=== PATIENT | female | born 1945 | race Two or more races ===

== ENCOUNTER 2023-02-07 14:01 | Emergency (ER) | payer MEDICARE ==
[~2023-02-07] VITALS: Ht 165.1 cm; Wt 97.7 kg
[2023-02-07 14:04] VITALS: TEMP 98.6
[2023-02-07] MEDS ORDERED: CYCL-448 PO (14:39)
[2023-02-07] MEDS ORDERED: ALBU18HF12 IH (14:39)
[2023-02-07] MEDS ORDERED: LOSA-30 PO (14:39)
[2023-02-07] MEDS ORDERED: FLUT1BLS12 IH (14:39)
[2023-02-07] MEDS ORDERED: GABA-1181 PO (14:39)
[2023-02-07] MEDS ORDERED: APIX5TAB PO (14:39)
[2023-02-07] MEDS ORDERED: ATOR20TA PO (14:39)
[2023-02-07] MEDS ORDERED: FURO20 PO (14:39)
[2023-02-07] MEDS ORDERED: AUD NEB (14:39)
[2023-02-07 14:51] LABS: BASOPHILS % (AUTO) 0.4 % (0.0-2.0); EOSINOPHILS % (AUTO) 1.5 % (1.0-6.0); HEMATOCRIT 35.2 % (36-46); HEMOGLOBIN 11.4 g/dL (12.0-16.0); LYMPHOCYTES # (AUTO) 1.3 K/uL (1.0-4.8); LYMPHOCYTES % (AUTO) 21.5 % (22.0-44.0); MEAN CORPUSCULAR HEMOGLOBIN 29.8 pg (26.0-34.0); MEAN CORPUSCULAR HGB CONC 32.5 G/dL (31.0-37.0); MEAN CORPUSCULAR VOLUME 92 fL (80-100); MONOCYTES # (AUTO) 0.7 K/uL (0.1-1.0); MONOCYTES % (AUTO) 11.3 % (2.0-9.0); NEUTROPHILS # (AUTO) 3.9 K/uL (1.8-7.7); NEUTROPHILS % (AUTO) 65.3 % (40.0-70.0); PLATELET COUNT (AUTO) 230 K/uL (150-450); RED BLOOD CELL COUNT(AUTO) 3.83 MIL/uL (4.00-5.20); RED CELL DISTRIBUTION WIDTH 16.6 % (11.5-14.5)
[2023-02-07 15:00] LABS: CALCIUM, TOTAL 8.5 mg/dL (8.8-10.5); CREATININE 1.47 mg/dL (0.60-1.30); POTASSIUM 3.4 mmol/L (3.5-5.1)
[2023-02-07 15:06] LABS: ALBUMIN 2.8 g/dL (3.4-5.0); BILIRUBIN,TOTAL 0.3 mg/dL (0.1-1.0); TOTAL PROTEIN, SERUM 6.3 g/dL (6.4-8.2)
[2023-02-07] MEDS ORDERED: SODIUM CHLORIDE 0.9% 100 ML ONE (15:22)
[2023-02-07] MEDS ORDERED: IOHEXOL 350 MG/ML 100 ML VIAL ONE (15:23)
[2023-02-07 15:51] VITALS: BP 113/53
[2023-02-07 16:12] VITALS: PULSE 95; RESP 16; O2SAT 92
[2023-02-07] MEDS ORDERED: ALBUTEROL SULFATE 2.5 MG/0.5 ML NEB SOLUTION NEB ONE (16:15)
[2023-02-07] MEDS ORDERED: MethylPREDNISolone SOD SUCC 125 MG/2 ML VIAL IVP ONE (16:15)
[2023-02-07] MEDS ORDERED: IPRATROPIUM BROMIDE 0.5 MG/2.5 ML NEB SOLUTION NEB ONE (16:15)
[2023-02-07 16:28] VITALS: PULSE 72; RESP 16; O2SAT 100
[2023-02-07] MEDS ORDERED: PRED-554 PO (16:55)
[2023-02-07] MEDS ORDERED: ALBUTEROL SULFATE HFA 90 MCG/PUFF 8 GM INHALER IH ONE (17:00)
[2023-02-07] MEDS ORDERED: RIVA20TA PO (17:03)
[2023-02-07] MEDS ORDERED: LOSA1TAB37 PO (17:04)
== END 2023-02-07 17:31 | disposition home or self-care (01) ==
LOC: EMS 14:01
DX: J45.909 Unspecified asthma, uncomplicated (principal); I11.0 Hypertensive heart disease with heart failure; I50.9 Heart failure, unspecified; E11.9 Type 2 diabetes mellitus without complications
CPT/HCPCS: 99285; 96374; 71275; 71045; 80053; 83880; 84484; 85025; 36415; 94640; 93005; J2930; Q9967; J7050; J3535; J7613

== ENCOUNTER 2023-03-11 17:14 | Emergency (ER) | payer MEDICARE ==
[~2023-03-11] VITALS: Ht 152.4 cm; Wt 113.6 kg
[~2023-03-11 17:14] MED LIST: ALBU18HF12 IH; ALBU2.5V39 NEB; ATOR20TA PO; CYCL-448 PO; FLUT1BLS12 IH; FURO20 PO; GABA-1181 PO; LOSA1TAB37 PO; PRED-554 PO; RIVA20TA PO
[2023-03-11 17:19] VITALS: TEMP 98.2
[2023-03-11] MEDS ORDERED: ACETAMINOPHEN/CODEINE 300-30 MG TABLET PO ONE (19:15)
[2023-03-11 19:47] LABS: BASOPHILS % (AUTO) 0.3 % (0.0-2.0); EOSINOPHILS % (AUTO) 0.1 % (1.0-6.0); HEMATOCRIT 30.6 % (36-46); HEMOGLOBIN 10.1 g/dL (12.0-16.0); LYMPHOCYTES # (AUTO) 0.9 K/uL (1.0-4.8); LYMPHOCYTES % (AUTO) 12.6 % (22.0-44.0); MEAN CORPUSCULAR HEMOGLOBIN 30.3 pg (26.0-34.0); MEAN CORPUSCULAR VOLUME 92 fL (80-100); MONOCYTES # (AUTO) 0.5 K/uL (0.1-1.0); MONOCYTES % (AUTO) 6.6 % (2.0-9.0); NEUTROPHILS # (AUTO) 5.5 K/uL (1.8-7.7); NEUTROPHILS % (AUTO) 80.4 % (40.0-70.0); PLATELET COUNT (AUTO) 290 K/uL (150-450); RED BLOOD CELL COUNT(AUTO) 3.34 MIL/uL (4.00-5.20); RED CELL DISTRIBUTION WIDTH 16.2 % (11.5-14.5)
[2023-03-11 19:57] LABS: POTASSIUM 4.5 mmol/L (3.5-5.1)
[2023-03-11 20:02] LABS: ALBUMIN 2.7 g/dL (3.4-5.0); BILIRUBIN,TOTAL 0.2 mg/dL (0.1-1.0); TOTAL PROTEIN, SERUM 6.3 g/dL (6.4-8.2)
[2023-03-11] MEDS ORDERED: ACET-2080 PO (22:12)
[2023-03-11 22:20] VITALS: BP 139/78; PULSE 56; RESP 16
[2023-03-12] MEDS ORDERED: ACET-2080 PO (12:35)
== END 2023-03-11 23:58 | disposition home or self-care (01) ==
LOC: EMS 17:15
DX: S20.212A Contusion of left front wall of thorax, initial encounter (principal); S30.1XXA Contusion of abdominal wall, initial encounter; J45.909 Unspecified asthma, uncomplicated; I11.0 Hypertensive heart disease with heart failure; I50.9 Heart failure, unspecified; E11.9 Type 2 diabetes mellitus without complications; W06.XXXA Fall from bed, initial encounter; Y93.89 Activity, other specified; Y92.89 Other specified places as the place of occurrence of the external cause; Y99.8 Other external cause status
CPT/HCPCS: 71045; 71250; 72192; 74150; 74176; 80053; 83690; 84484; 85025; 93005; 99285; 36415-L1; 36415-TC